=== PATIENT | male | born 1935 ===

== ENCOUNTER 2017-09-06 13:38 | Emergency (ER) | payer OTHER ==
[~2017-09-06] VITALS: Ht 152.4 cm; Wt 72.6 kg
[~2017-09-06 13:38] MED LIST: AVALIDE 150-12.1 TA1; COREG CR20 MG; HUMALOG100 U/ML SQ; LANTUS100 U/ML SQ; NORVASC2.5 M1; VYTORIN 10-20 M1 TAB
== END 2017-09-06 19:34 | disposition home or self-care (01) ==
LOC: ER 13:38
DX: R42 Dizziness and giddiness (principal); R53.1 Weakness

== ENCOUNTER 2017-11-11 20:19 | Inpatient (IN) | payer OTHER ==
[~2017-11-11] VITALS: Ht 175.3 cm; Wt 79.4 kg
[2017-11-19] MEDS ORDERED: COZAAR100 MG PO (08:09)
[2017-11-19] MEDS ORDERED: SERTRALINE HCL50 MG PO (08:09)
[2017-11-19] MEDS ORDERED: LEVAQUIN750 MG PO (08:09)
[2017-11-19] MEDS ORDERED: FUROSEMIDE20 MG PO (08:09)
[2017-11-19] MEDS ORDERED: FAMOTIDINE20 MG PO (08:09)
== END 2017-11-19 10:16 | disposition home health service (06) | DRG 194 ==
LOC: ER 20:19 → MEDJ 11-12 07:55 → SEC-K 11-12 07:55 → MEDI 11-12 07:55 → MEDJ 11-15 16:26
PROC: B246ZZZ Ultrasonography of Right and Left Heart (ICD-10-PCS; 2017-11-12)
PROC: 3E0F7GC Introduction of Other Therapeutic Substance into Respiratory Tract, Via Natural or Artificial Opening (ICD-10-PCS; 2017-11-12)
PROC: 0W993ZX Drainage of Right Pleural Cavity, Percutaneous Approach, Diagnostic (ICD-10-PCS; principal; 2017-11-15)
DX: J18.9 Pneumonia, unspecified organism (principal); J44.1 Chronic obstructive pulmonary disease with (acute) exacerbation; J44.0 Chronic obstructive pulmonary disease with (acute) lower respiratory infection; J91.8 Pleural effusion in other conditions classified elsewhere; J98.11 Atelectasis; J20.9 Acute bronchitis, unspecified; I11.9 Hypertensive heart disease without heart failure; E11.65 Type 2 diabetes mellitus with hyperglycemia; E86.0 Dehydration; Z74.01 Bed confinement status; F03.90 Unspecified dementia, unspecified severity, without behavioral disturbance, psychotic disturbance, mood disturbance, and anxiety; K52.89 Other specified noninfective gastroenteritis and colitis; R09.02 Hypoxemia; L89.321 Pressure ulcer of left buttock, stage 1

== ENCOUNTER 2017-11-21 15:53 | Inpatient (IN) | payer OTHER ==
[~2017-11-21] VITALS: Ht 177.8 cm; Wt 79.4 kg
[~2017-11-21 15:53] MED LIST changes: +COZAAR100 MG PO; +FAMOTIDINE20 MG PO; +FUROSEMIDE20 MG PO; +LEVAQUIN750 MG PO; +SERTRALINE HCL50 MG PO
[2017-11-21] MEDS ORDERED: VITAMIN E & D B52 ML (16:22)
[2017-11-21] MEDS ORDERED: CENTRUM CHEWAB1 EACH (16:23)
== END 2017-12-02 15:53 | disposition other institution (70) | DRG 186 ==
LOC: ER 15:53 → MEDI 16:54 → SURH 16:54
PROVIDERS: Radiology Vascular & Interventional Radiology
PROC: 4A12X4Z Monitoring of Cardiac Electrical Activity, External Approach (ICD-10-PCS; 2017-11-21)
PROC: B246ZZZ Ultrasonography of Right and Left Heart (ICD-10-PCS; 2017-11-21)
PROC: 3E0F7GC Introduction of Other Therapeutic Substance into Respiratory Tract, Via Natural or Artificial Opening (ICD-10-PCS; 2017-11-21)
PROC: 4A033R1 Measurement of Arterial Saturation, Peripheral, Percutaneous Approach (ICD-10-PCS; 2017-11-21)
PROC: 0W993ZX Drainage of Right Pleural Cavity, Percutaneous Approach, Diagnostic (ICD-10-PCS; 2017-11-22)
PROC: BB24ZZZ Computerized Tomography (CT Scan) of Bilateral Lungs (ICD-10-PCS; 2017-11-23)
PROC: B54DZZZ Ultrasonography of Bilateral Lower Extremity Veins (ICD-10-PCS; 2017-11-24)
PROC: 02HV33Z Insertion of Infusion Device into Superior Vena Cava, Percutaneous Approach (ICD-10-PCS; 2017-11-26)
PROC: 0B9N30Z Drainage of Right Pleura with Drainage Device, Percutaneous Approach (ICD-10-PCS; principal; 2017-11-30 17:00)
DX: J90 Pleural effusion, not elsewhere classified (principal); J18.9 Pneumonia, unspecified organism; I50.33 Acute on chronic diastolic (congestive) heart failure; I24.9 Acute ischemic heart disease, unspecified; J44.1 Chronic obstructive pulmonary disease with (acute) exacerbation; J44.0 Chronic obstructive pulmonary disease with (acute) lower respiratory infection; I11.0 Hypertensive heart disease with heart failure; I48.0 Paroxysmal atrial fibrillation; E11.9 Type 2 diabetes mellitus without complications; Z74.01 Bed confinement status; F03.90 Unspecified dementia, unspecified severity, without behavioral disturbance, psychotic disturbance, mood disturbance, and anxiety; K52.89 Other specified noninfective gastroenteritis and colitis; J20.9 Acute bronchitis, unspecified; R42 Dizziness and giddiness; R09.02 Hypoxemia; I87.2 Venous insufficiency (chronic) (peripheral)